=== PATIENT | female | born 1940 | race Caucasian/White ===

== ENCOUNTER 2019-04-18 20:55 | Inpatient (IN) ==
--- NOTE | 2019-04-18 21:01 | Emergency Department Note ---
Disposition Clinical Impression: Delirium due to general medical condition Altered mental status Qualifiers: Altered mental status type: stupor Qualified Code(s): R40.1 - Stupor Leukocytosis Qualifiers: Leukocytosis type: other Qualified Code(s): D72.828 - Other elevated white blood cell count Pneumonia Qualifiers: Pneumonia type: due to unspecified organism Laterality: bilateral Lung location: unspecified part of lung Qualified Code(s): J18.9 - Pneumonia, uns pecified organism Sepsis Qualifiers: Sepsis type: sepsis due to unspecified organism Qualified Code(s): A41.9 - Sepsis, unspecified organism Disposition: Admitted As Inpatient Condition: Critical Referrals: Pablo Rowland MD [Primary Care Provider] - Forms: ED Satisfaction Letter Time of Disposition: 22:00 Altered Mental Status HPI - General Chief Complaint: ED Altered Mental Status Stated Complaint: UNRESPONSIVE/AMS Time Seen by Provider: 04/18/19 20:59 Source: EMS Mode of arrival: EMS Limitations: altered mental status, physical limitation, age Nursing Notes Reviewed: Yes Vital Signs Reviewed: Yes - History of Present Illness HPI Narrative: Patient arrives from assisted with history of decreased mental status, hypotension and hypoxia. She had a chest x-ray performed a laboratory ordered with plan to continue with DNR CC measures. Family/POA advised the assisted they decided her transfer to the emergency department as she had had an episode in the past that responded to fluids due to acute renal failure. She has been brought in by EMS noting a blood pressure in the 80s, tachycardia, hypoxia and poor responsive state. She is not able to follow commands or answer questions and of any type. No further history is obtainable from the patient at this time. MD complaint: altered mental status, confusion, decreased responsiveness, weakness Onset (ago): day(s) Timing confirmed by: family member, caregiver Pain Severity: none Consistency of Symptoms: getting worse - Related Data Home Medications Medication Instructions Recorded Confirmed Allopurinol [Zyloprim 100 MG] 200 mg PO DAILY 04/18/19 04/18/19 Baclofen 5 mg PO TID 04/18/19 04/18/19 Clopidogrel [Plavix] 75 mg PO DAILY 04/18/19 04/18/19 Divalproex (12 HR) [Depakote (12 500 mg PO DAILY 04/18/19 04/18/19 HR)] Divalproex Sodium [Depakote] 125 mg PO DAILY 04/18/19 04/18/19 Docusate [Colace] 100 mg PO BID 04/18/19 04/18/19 Nitrofurantoin Monohyd/M-Cryst 100 mg PO DAILY 04/18/19 04/18/19 [Macrobid 100 mg Capsule] Nortriptyline [Pamelor] 10 mg PO HS 04/18/19 04/18/19 Oxycodone HCl/Acetaminophen 1 each PO DAILY 04/18/19 04/18/19 [Percocet 5-325 mg Tablet] Quetiapine Fumarate [SEROquel] 100 mg PO HS 04/18/19 04/18/19 Sertraline [Zoloft] 25 mg PO DAILY 04/18/19 04/18/19 Allergies Allergy/AdvReac Type Severity Reaction Status Date / Time adhesive tape AdvReac See Verified 11/26/15 03:05 Comments codeine AdvReac See Verified 11/26/15 03:05 Comments iodine AdvReac See Verified 11/26/15 03:05 Comments shellfish derived AdvReac See Verified 11/26/15 03:05 Comments Sulfa (Sulfonamide AdvReac See Verified 11/26/15 03:05 Antibiotics) Comments Limitations: ROS unobtainable due to patients medical condition Past Medical History - Past Medical History Source: obtained from family, nursing notes reviewed Medical history: Reports: CHF, COPD, CVA, dementia, diabetes, GERD, hyperlipidemia, hypertension, renal disease, other Psychiatric history: Reports: anxiety, depression, other - Social History Smoking Status: Never smoker Smokeless Tobacco Status: No Alcohol use: Reports: none Drug use: Reports: none Physical Exam - General Limitations: altered mental status, physical limitation General appearance: lethargic - Head Head exam: atraumatic, normocephalic, other (The patient's care is densely matted in the occiput.) - Eye Eye exam: Absent: scleral icterus, conjunctival injection - ENT ENT exam: mucous membranes dry - Neck Neck exam: Present: trachea midline - Chest Chest inspection: Present: normal inspection, symmetric chest wall rise, other (Shallow respiration) - Respiratory Respiratory exam: Present: other (Shallow respiration). Absent: respiratory distress, wheezes, prolonged expiratory phase - Cardiovascular Cardiovascular exam: Present: regular rate, tachycardia - Abdominal Exam Abdominal exam: Present: soft, Non-Tender. Absent: tenderness, distention, guarding, rebound, rigidity - Extremities Exam Extremities exam: Present: other (Delayed capillary refill, no breakdown, pale) - Expanded Lower Extremity Exam Gait: not tested/not observed - Back Exam Back exam: Present: other (Decubiti in the sacral and buttock region) - Neurological Exam Neurological exam: Present: other (Patient unresponsive and only moaning when turned to examine the back.). Absent: alert, oriented X3 - Psychiatric Psychiatric exam: Present: other (Unresponsive) - Skin Skin exam: Present: warm, dry, pallor, other (Sacral and buttock decubiti, shallow). Absent: diaphoresis Course Course Narrative: 2102: Care has been discussed with Dr. Rowland. He does not wish to be aggressive with extended laboratory her testing. He did agree with obtaining the laboratories that he had ordered at the assisted for CBC, basic metabolic panel and a procalcitonin. As there is no report on the chest x-ray this too will be repeated. We will give fluid bolus and continued fluid hydration as well as a dose of Rocephin to cover for possible infection. I discussed urine, lactic acid, ABG or blood cultures and he is comfortable going with the above treatment. He will continue with comfort care measures and support her for infection and fluids. 2114: Family has arrived to bedside care is discussed as well as the rec ommendations by Dr. Rowland. I did advise them that her saturation on a nonrebreather mask is about 80% and her respirations paradoxically slow. This will likely lead to progressive CO2 retention, sedation and likely . She is not a candidate for BiPAP and also not to be intubated. They are in agreement with continuing comfort measures. It was noted at the same time that she has bedsores on the buttocks and sacral region. The back of her hair is firm and thickly matted. Protective bandages have been placed over the areas of skin breakdown. 2209: With return of x-ray and labwork, orders have been coordinated for Dr. Rowland to the floor. Vital Signs Temperature 98.0 F 04/18/19 20:59 Pulse Rate 119 04/18/19 20:59 Respiratory Rate 18 04/18/19 20:59 Blood Pressure 93/47 04/18/19 20:59 O2 Sat by Pulse Oximetry 81 04/18/19 20:59 Temperature 98.0 F 04/18/19 20:59 Pulse Rate 119 04/18/19 20:59 Respiratory Rate 18 04/18/19 20:59 Blood Pressure 93/47 04/18/19 20:59 O2 Sat by Pulse Oximetry 88 04/18/19 21:46 Oxygen Delivery Oxygen Delivery Nasal Cannula Altered Mental Status - Differential Diagnosis Likely: altered mental status, delirium, dementia, hyponatremia, sepsis - Medical Records Medical records reviewed: Yes I reviewed the patient's medical records. - Lab Data Lab results reviewed: Yes I reviewed the patient's lab results. Result diagrams: 04/18/19 21:41 04/18/19 21:41 Lab Results 04/18/19 04/18/19 Range/Units 21:41 21:41 WBC 35.1 H* (4.3-11.1) K/mcL RBC 3.67 L (3.82-4.97) M/mcL Hgb 11.6 (11.5-15.4) g/dL Hct 36.5 (35.3-44.9) % MCV 99.5 (83.0-100.0) fL MCH 31.6 (28.0-33.3) pg MCHC 31.8 (31.6-35.5) g/dL RDW 15.6 H (11.5-14.5) % Plt Count 383 (140-400) K/mcL MPV 9.8 (9.4-12.4) fL Nucleated RBCs/100 WBC 0.5 H (0) /100 WBC Sodium 147 H (136-145) mEq/L Potassium 3.2 L (3.5-5.1) mEq/L Chloride 106 (98-107) mEq/L Carbon Dioxide 31 H (23-29) mEq/L BUN 46 H (8-23) mg/dL Creatinine 0.75 (0.60-1.20) mg/dL Est GFR ( Amer) > 60 (> 60) Est GFR (Non-Af Amer) > 60 (> 60) BUN/Creatinine Ratio 61 H (6-26) Glucose 80 (70-105) mg/dL Calculated Osmolality 315 H (280-300) Calcium 8.3 L (8.6-10.3) mg/dL - Radiology Data Radiology results reviewed: Yes I reviewed the patient's radiology results. Single view chest x-rays performed. This shows elevation of right hemidiaphragm and a patchy infiltrate base of the right lung. Etiologies include aspiration or pneumonia. Patient has cardiomegaly. I do not see effusion, pneumothorax or heart failure. This is on my interpretation. Impressions Chest X-Ray 04/18/19 21:02 IMPRESSION: Bilateral airspace disease, greater on the right, pneumonia or asymmetric edema. D/ / Kassidy Chavarria Cha, MD / Kassidy Chavarria Cha, MD Interpreting Provider: Kassidy Chavarria Cha, MD Checklist - LKW: 3-4.5 hrs Add. Warnings/Precautions Patient/family understanding: The patient/family members have been counseled and understood the risk, benefit, and alternatives of treatment. Critical Care Time Critical Care Time: Yes Total Critical Care Time: 40 Attestation: As this patient did present with signs and symptoms of potential life- threatening illness requiring my urgent intervention, total critical care time in this patient's care has been 40 minutes, not withstanding separately reporta ble procedures.
[2019-04-18] MEDS ORDERED: 0.9 % Sodium Chloride 1,000 ML IVC ONE ×3 (21:02→23:11)
[2019-04-18] MEDS ORDERED: cefTRIAXone 1,000 MG in 0.9 % Sodium Chloride Mini Bag 100 ML IVPB ONE (21:06)
[2019-04-18] MEDS ORDERED: 0.9 % Sodium Chloride 1,000 ML IVC SCH (21:15)
[2019-04-18 21:46] LABS: Hematocrit 36.5 % (35.3-44.9); Hemoglobin 11.6 g/dL (11.5-15.4); Lymphocytes # 0.7 K/mcL (0.6-4.6); Mean Corpuscular HGB Conc 31.8 g/dL (31.6-35.5); Mean Corpuscular Hemoglobin 31.6 pg (28.0-33.3); Mean Corpuscular Volume 99.5 fL (83.0-100.0); Mean Platelet Volume 9.8 fL (9.4-12.4); Nucleated Red Blood Cells 0.5 /100 WBC (0); Platelet Count 383 K/mcL (140-400); Red Blood Count 3.67 M/mcL (3.82-4.97); Red Cell Distribution Width 15.6 % (11.5-14.5)
[2019-04-18 21:53] LABS: White Blood Count 35.1 K/mcL (4.3-11.1)
[2019-04-18 22:04] LABS: BUN/Creatinine Ratio 61 (6-26); Blood Urea Nitrogen 46 mg/dL (8-23); Calcium 8.3 mg/dL (8.6-10.3); Carbon Dioxide 31 mEq/L (23-29); Chloride 106 mEq/L (98-107); Glucose 80 mg/dL (70-105); Osmolality,Calculated 315 (280-300); Potassium 3.2 mEq/L (3.5-5.1); Sodium 147 mEq/L (136-145); eGFR For African Americans > 60 (> 60); eGFR For Non-African Americans > 60 (> 60)
[2019-04-18] MEDS ORDERED: Azithromycin 500 MG in D5% in Water 250 ML IVPB ONE (22:16)
[2019-04-18 22:28] LABS: Monocytes # 1.4 K/mcL (0.0-1.3); Neutrophils # 31.6 K/mcL (1.6-8.9); Platelet Estimate Normal (Normal); Toxic Granulation Present (Not Present)
[2019-04-18] MEDS ORDERED: Ondansetron 4 MG/2 ML VIAL IVP PRN (23:11)
[2019-04-18] MEDS ORDERED: Naloxone 0.4 MG/ML INJ IVP PRN (23:11)
[2019-04-18] MEDS ORDERED: Albuterol 2.5 MG/3 ML NEBULIZER IH PRN (23:11)
[2019-04-19] MEDS: 0.9 % Sodium Chloride 1,000 ML IVC SCH ×2 (03:51→14:46)
[2019-04-19] MEDS: Ipratropium/Albuterol Neb 3 ML IH SCH ×3 (03:59→08:16)
[2019-04-19] MEDS ORDERED: Acetaminophen 650 MG RECTAL SUPP RC PRN (05:11)
[2019-04-19] MEDS: *HR* LORazepam 2 MG/ML VIAL IVP PRN ×2 (06:11→14:25)
[2019-04-19] MEDS ORDERED: cefTRIAXone 1,000 MG in Water for inj. (sterile) 10 ML IVPB SCH (09:00)
[2019-04-19] MEDS: cefTRIAXone 1,000 MG in Water for inj. (sterile) 10 ML IVP SCH (09:37)
--- NOTE | 2019-04-19 10:27 | Internal Med History&Physical ---
Date of Encounter: 04/19/19 Time of Encounter: 10:10 Assessment and Plan (1) Sepsis Current visit: Yes Status: Acute Likely secondary to pneumonia. She was started on empiric IV Rocephin and Zithromax in emergency room. These will be continued and lactobacillus will be added when oral intake ability improves. Qualifiers: Sepsis type: sepsis due to unspecified organism Qualified Code(s): A41.9 - Sepsis, unspecified organism (2) Pneumonia Current visit: Yes Status: Acute As above Qualifiers: Pneumonia type: due to unspecified organism Laterality: bilateral Lung location: unspecified part of lung Qualified Code(s): J18.9 - Pneumonia, unspecified organism (3) Fracture of distal end of right femur Current visit: Yes Status: Acute Continue knee immobilizer and follow with orthopedist. Qualifiers: Encounter type: subsequent encounter Fracture type: closed Fracture m orphology: unspecified fracture morphology Fracture healing: with routine healing Qualified Code(s): S72.401D - Unspecified fracture of lower end of right femur, subsequent encounter for closed fracture with routine healing (4) Azotemia Current visit: Yes Status: Acute Likely due to dehydration. Continue IV fluids and monitor labs. (5) Hypokalemia Current visit: Yes Status: Acute Supplemental potassium will be given. (6) Gout Current visit: No Status: Chronic Continue allopurinol when able to tolerate oral intake. Qualifiers: Gout site: unspecified site Gout etiology: unspecified cause Chronicity: chronic Presence of tophus: without tophus Qualified Code(s): M1A.9XX0 - Chronic gout, unspecified, without tophus (tophi) (7) Dementia Current visit: Yes Status: Chronic Qualifiers: Dementia type: unspecified type Dementia behavioral disturbance: without behavioral disturbance Qualified Code(s): F03.90 - Unspecified dementia without behavioral disturbance Internal Medicine - H&P: HPI Chief complaint: Altered mental status, hypotension, and hypoxia. Admitted From: Emergency Dept Plans for Post Hospital Care: Transfer [facility] Living [facility] History of present illness: Ms. Livingston is a 79 year old female who was sent to ER after longterm staff reported her to have decreased mental status, hypotension and hypoxia. Labs and x-rays were ordered at the SNF. Family/POA then decided they wished her to be sent to emergency room for more aggressive intervention. She was found to have significant leukocytosis with bandemia, hypokalemia, and likely dehydration. She was admitted to Medr floor for ongoing care needs. She has advanced dementia and cannot give any reliable history. Past Med Surg Social Fam HX - Past Medical History Medical history: asthma, CHF, COPD, CVA, dementia, diabetes, GERD, hyperlipidemia, hypertension, renal disease, other Additional medical history: CHRONIC PAIN, ALZHEIMERS, TYPE 2 DM, SLEEP APNEA, GENERALIZED ANXIETY DISRDER , former smoker 2-pack/day for 30-years Psychiatric history: anxiety, depression, other - Past Surgical History Surgical History: cholecystectomy, hysterectomy, other Additional surgical history: bilateral nipples removed from breast - Social History Smoking Status: Former smoker Smokeless Tobacco Status: No Alcohol use: none Drug use: none Internal Medicine - H&P: Meds Allopurinol [Zyloprim 100 MG] 200 mg PO DAILY 04/18/19 [History] Baclofen 5 mg PO TID 04/18/19 [History] Clopidogrel [Plavix] 75 mg PO DAILY 04/18/19 [History] Divalproex (12 HR) [Depakote (12 HR)] 500 mg PO DAILY 04/18/19 [History] Divalproex Sodium [Depakote] 125 mg PO DAILY 04/18/19 [History] Docusate [Colace] 100 mg PO BID 04/18/19 [History] Nitrofurantoin Monohyd/M-Cryst [Macrobid 100 mg Capsule] 100 mg PO DAILY 04/18/19 [History] Nortriptyline [Pamelor] 10 mg PO HS 04/18/19 [History] Oxycodone HCl/Acetaminophen [Percocet 5-325 mg Tablet] 1 each PO DAILY 04/18/19 [History] Quetiapine Fumarate [SEROquel] 100 mg PO HS 04/18/19 [History] Sertraline [Zoloft] 25 mg PO DAILY 04/18/19 [History] Allergy/AdvReac Type Severity Reaction Status Date / Time adhesive tape AdvReac See Verified 11/26/15 03:05 Comments codeine AdvReac See Verified 11/26/15 03:05 Comments iodine AdvReac See Verified 11/26/15 03:05 Comments shellfish derived AdvReac See Verified 01/26/16 03:05 Comments Sulfa (Sulfonamide AdvReac See Verified 11/26/15 03:05 Antibiotics) Comments All Systems PM: A 10-system review of systems was performed and is negative for pertinent findings except as documented above in the HPI. Review of systems: Review of systems is unobtainable from the patient. Available records were revi ewed and show the following: Gen.: Her weight has decreased from 360 pounds April 2012 to approximately 205 pounds at present. Weight has been stable for several months at the [facility]. Cardiovascular: She has history of hypertension but no known heart failure GA DVT or pulmonary embolus. Respiratory: She smoked from approximately age [age] up to one and a half packs per day. She has been diagnosed with COPD and wears oxygen. She had initial evaluation for DIANA several years ago but never completed the studies and does not use CPAP/BiPAP at the [facility]. GI: She has had cholecystectomy. She has GERD. There is no known disorders of liver or exocrine pancreas. : She had kidney stones in the without recurrence. There is no known chronic kidney or bladder disorders. Neurologic: She has advanced dementia. There is no known large distribution strokes or seizures. Endocrine: She was diagnosed with DM 2 approximately 1984. She has hyperlipidemia but no known thyroid disease. Hematology/oncology: There is no known blood disorders cancers or anemia Psychiatric: She has anxiety and depression. [place] skeletal: She was found to have a distal right femur fracture of uncertain age or etiology approximately 10 days ago. She has been seen by the [facility] orthopedist and a nonsurgical approach is being pursued. She has diagnoses of gout and DJD. - Constitutional Vitals: Temp Pulse Resp BP Pulse Ox 98.9 F 117 20 100/66 90 04/19/19 08:20 04/19/19 08:20 04/19/19 08:20 04/19/19 08:20 04/19/19 08:20 Exam: Gen.: She is a well-developed overweight female lying in bed who does not respond meaningfully to voice or light touch HEENT: Head is atraumatic and normocephalic. Eyes: She has a slightly disco njugate gaze. There is no scleral icterus. Mouth: Mucosa is dry. She is mouth breathing and wearing oxygen by oxymask. Neck: Supple and nontender. There is no thyromegaly or adenopathy noted. Heart: Heart tones are distant and difficult to hear. Lungs: No wheezes or crackles or rhonchi are heard. Abdomen: She has a large abdomen. It is nontender to palpation. No masses or guarding are noted. Extremities: She has mild DJD changes of her hands. She has a right knee immobilizer brace in place. Heel protector boots are in place bilaterally. There is no cyanosis edema or clubbing noted. Neurologic: Mental status: She does not respond to voice or light touch. Cranial nerves: she does not spontaneously move facial muscles or follow commands. Motor: She has equal arm tone on passive range of motion. She moves very little spontaneously. No further neurologic testing is attempted. Skin: Warm and dry. Internal Med - H&P Results - Labs CBC & Chem 7: 04/18/19 21:41 04/18/19 21:41 Labs: Short CBC 04/18/19 Range/Units 21:41 WBC 35.1 H* (4.3-11.1) K/mcL Hgb 11.6 (11.5-15.4) g/dL Hct 36.5 (35.3-44.9) % Plt Count 383 (140-400) K/mcL Neutrophils # 31.6 H (1.6-8.9) K/mcL BMP 04/18/19 21:41 Sodium 147 H Potassium 3.2 L Chloride 106 Carbon Dioxide 31 H BUN 46 H Creatinine 0.75 Glucose 80 Calcium 8.3 L - Impressions ITS Impressions Chest X-Ray 04/18/19 21:02 IMPRESSION: Bilateral airspace disease, greater on the right, pneumonia or asymmetric edema. D/ / Kassidy Chavarria Cha, MD / Kassidy Chavarria Cha, MD Interpreting Provider: Kassidy Chavarria Cha, MD
[2019-04-19] MEDS: 0.45 % Sodium Chloride w/KCl 20 MEQ/1,000 ML MLS IVC SCH (12:36)
[2019-04-19] MEDS: Acetaminophen 650 MG RECTAL SUPP RC PRN (17:46)
[2019-04-19] MEDS ORDERED: Ketorolac 30 MG/ML VIAL IVP ONE (21:04)
[2019-04-19] MEDS ORDERED: levoFLOXacin 750 MG/150 ML 750 MG/150 ML BAG IVPB ONE (21:05)
[2019-04-19] MEDS: Azithromycin 500 MG in D5% in Water 250 ML IVPB SCH (21:17)
[2019-04-20] MEDS: Acetaminophen 650 MG RECTAL SUPP RC PRN (00:28)
[2019-04-20] MEDS: 0.45 % Sodium Chloride w/KCl 20 MEQ/1,000 ML MLS IVC SCH ×4 (00:31→19:00)
[2019-04-20] MEDS: *HR* Enoxaparin 40 MG/0.4 ML SYRINGE SQ SCH (05:53)
[2019-04-20 07:52] LABS: Hematocrit 33.6 % (35.3-44.9); Hemoglobin 10.6 g/dL (11.5-15.4); Mean Corpuscular HGB Conc 31.5 g/dL (31.6-35.5); Mean Corpuscular Hemoglobin 31.5 pg (28.0-33.3); Mean Platelet Volume 10.3 fL (9.4-12.4); Nucleated Red Blood Cells 0.4 /100 WBC (0); Platelet Count 322 K/mcL (140-400); Red Blood Count 3.36 M/mcL (3.82-4.97); Red Cell Distribution Width 16.2 % (11.5-14.5)
[2019-04-20 08:15] LABS: White Blood Count 30.7 K/mcL (4.3-11.1)
[2019-04-20 08:37] LABS: Thyroid Stimulating Hormone 0.768 mcIU/mL (0.340-5.600)
[2019-04-20 08:38] LABS: Alanine Aminotransferase 6 Units/L (7-52); Albumin 1.9 g/dL (3.5-5.7); Albumin/Globulin Ratio 0.5 (1.1-2.2); Alkaline Phosphatase 131 Units/L (34-104); Aspartate Amino Transferase 21 Units/L (13-39); BUN/Creatinine Ratio 77 (6-26); Bilirubin,Total 0.6 mg/dL (0.3-1.0); Blood Urea Nitrogen 41 mg/dL (8-23); Calcium 8.1 mg/dL (8.6-10.3); Carbon Dioxide 34 mEq/L (23-29); Chloride 109 mEq/L (98-107); Globulin 3.6 g/dL (2.4-3.5); Glucose 96 mg/dL (70-105); Magnesium 1.8 mg/dL (1.6-2.6); Osmolality,Calculated 318 (280-300); Potassium 3.5 mEq/L (3.5-5.1); Sodium 149 mEq/L (136-145); Total Protein 5.5 g/dL (6.4-8.9); eGFR For African Americans > 60 (> 60); eGFR For Non-African Americans > 60 (> 60)
[2019-04-20 09:06] LABS: Monocytes # 0.6 K/mcL (0.0-1.3)
[2019-04-20 09:07] LABS: Neutrophils # 26.4 K/mcL (1.6-8.9)
[2019-04-20 09:08] LABS: Lymphocytes # 3.1 K/mcL (0.6-4.6)
[2019-04-20 09:09] LABS: Platelet Estimate Normal (Normal); Toxic Granulation Present (Not Present)
--- NOTE | 2019-04-20 09:14 | Internal Med Progress Note ---
Date of Encounter: 04/20/19 Time of Encounter: 09:05 - Assessment and plan (1) Sepsis Current Visit: Yes Status: Acute Assessment and plan: April 20. Pro calcitonin elevated at 1.14. WBC improved at 30.7. Continue Rocephin and Zithromax. Qualifiers: Sepsis type: sepsis due to unspecified organism Qualified Code(s): A41.9 - Sepsis, unspecified organism (2) Pneumonia Current Visit: Yes Status: Acute Assessment and plan: April 20. As above Qualifiers: Pneumonia type: due to unspecified organism Laterality: bilateral Lung location: unspecified part of lung Qualified Code(s): J18.9 - Pneumonia, unspecified organism (3) Fracture of distal end of right femur Current Visit: Yes Status: Acute Assessment and plan: April 20. Continue knee immobilizer and follow with orthopedist Qualifiers: Encounter type: subsequent encounter Fracture type: closed Fracture morphology: unspecified fracture morphology Fracture healing: with routine healing Qualified Code(s): S72.401D - Unspecified fracture of lower end of right femur, subsequent encounter for closed fracture with routine healing (4) Azotemia Current Visit: Yes Status: Acute Assessment and plan: April 20. BUN and creatinine decreased to 41 and 0.53 respectively. Continue IV fluids. (5) Hypokalemia Current Visit: Yes Status: Acute Assessment and plan: April 20. Potassium normal at 3.5. Continue IV fluids with supplemental potassium. (6) Gout Current Visit: No Status: Chronic Assessment and plan: April 20. Continue allopurinol when able to tolerate oral intake. Qualifiers: Gout site: unspecified site Gout etiology: unspecified cause Chronicity: chronic Presence of tophus: without tophus Qualified Code(s): M1A.9XX0 - Chronic gout, unspecified, without tophus (tophi) (7) Dementia Current Visit: Yes Status: Chronic Assessment and plan: April 20. Stable Qualifiers: Dementia type: unspecified type Dementia behavioral disturbance: without behavioral disturbance Qualified Code(s): F03.90 - Unspecified dementia without behavioral disturbance (8) Anemia Current Visit: Yes Status: Acute Assessment and plan: April 20. Hemoglobin decreased to 10.6 today. Anemia testing will be ordered Qualifiers: Anemia type: unspecified type Qualified Code(s): D64.9 - Anemia, unspecified - Subjective Interval history: April 20. She spiked a fever last night. She was given IV Toradol and Levaquin with resolution of fever. - Constitutional Vitals: Temp Pulse Resp BP Pulse Ox 97.7 F 89 14 103/64 97 04/20/19 06:31 04/20/19 06:31 04/20/19 06:31 04/20/19 06:31 04/20/19 06:31 Exam: She is resting in bed and appears slightly less somnolent than yesterday. She is moving her arms and head slightly more than yesterday. She is still wearing oxygen by oxymask. Lungs show no wheezes or rhonchi anteriorly. Extremities show no edema. I reviewed her medications and lab results. Internal Medicine: Result - Labs CBC & Chem 7: 04/20/19 07:19 04/20/19 07:19 Labs: Short CBC 04/20/19 Range/Units 07:19 WBC 30.7 H* (4.3-11.1) K/mcL Hgb 10.6 L (11.5-15.4) g/dL Hct 33.6 L (35.3-44.9) % Plt Count 322 (140-400) K/mcL Neutrophils # 26.4 H (1.6-8.9) K/mcL BMP 04/20/19 07:19 Sodium 149 H Potassium 3.5 Chloride 109 H Carbon Dioxide 34 H BUN 41 H Creatinine 0.53 L Glucose 96 Calcium 8.1 L Liver Function 04/20/19 Range/Units 07:19 Total Bilirubin 0.6 (0.3-1.0) mg/dL AST 21 (13-39) Units/L ALT 6 L (7-52) Units/L Alkaline Phosphatase 131 H (34-104) Units/L Albumin 1.9 L (3.5-5.7) g/dL Consult Discharge Plan - Plan Referrals: Pablo Rowland MD [Primary Care Provider] - 1 week
[2019-04-20] MEDS: cefTRIAXone 1,000 MG in Water for inj. (sterile) 10 ML IVP SCH (09:35)
[2019-04-20 11:18] LABS: Bilirubin,Urine Small (Negative); Blood,Urine Large (Negative); Clarity,Urine Clear (Clear); Color,Urine Dark Yellow (Yellow); Glucose,Urine (UA) Normal (Normal); Ketones,Urine Negative (Negative); Leukocyte Esterase,Urine Negative (Negative); Nitrite,Urine Negative (Negative); Protein,Urine 30 mg/dL (Neg-Trace); Specific Gravity,Urine 1.015 (1.010-1.025)
[2019-04-20 12:15] LABS: Mucus,Urine Few (Few); RBC,Urine 50-100 per hpf (0-3); Squamous Epithelial Cell,Urine Few per lpf (None-Few)
[2019-04-20] MEDS: Morphine Sulfate Oral CONC 10 MG/0.5 ML ORAL.SYG SL PRN ×3 (12:52→20:01)
[2019-04-20] MEDS ORDERED: *HR* FentaNYL PATCH 12 MCG PATCH TD SCH (14:30)
[2019-04-20] MEDS: *HR* LORazepam 2 MG/ML VIAL IVP PRN (20:01)
[2019-04-20] MEDS: Azithromycin 500 MG in D5% in Water 250 ML IVPB SCH (20:02)
[2019-04-21] MEDS: Morphine Sulfate Oral CONC 10 MG/0.5 ML ORAL.SYG SL PRN ×5 (02:42→22:10)
[2019-04-21] MEDS: 0.45 % Sodium Chloride w/KCl 20 MEQ/1,000 ML MLS IVC SCH ×2 (04:35→15:13)
[2019-04-21] MEDS: *HR* Enoxaparin 40 MG/0.4 ML SYRINGE SQ SCH (04:35)
[2019-04-21] MEDS: *HR* LORazepam 2 MG/ML VIAL IVP PRN (04:36)
[2019-04-21 06:34] LABS: Hematocrit 35.6 % (35.3-44.9); Hemoglobin 11.3 g/dL (11.5-15.4); Mean Corpuscular HGB Conc 31.7 g/dL (31.6-35.5); Mean Corpuscular Hemoglobin 31.6 pg (28.0-33.3); Mean Corpuscular Volume 99.4 fL (83.0-100.0); Mean Platelet Volume 10.5 fL (9.4-12.4); Nucleated Red Blood Cells 0.5 /100 WBC (0); Platelet Count 299 K/mcL (140-400); Red Blood Count 3.58 M/mcL (3.82-4.97); Red Cell Distribution Width 16.2 % (11.5-14.5)
[2019-04-21 06:55] LABS: BUN/Creatinine Ratio 79 (6-26); Blood Urea Nitrogen 27 mg/dL (8-23); Calcium 8.6 mg/dL (8.6-10.3); Carbon Dioxide 32 mEq/L (23-29); Chloride 110 mEq/L (98-107); Glucose 84 mg/dL (70-105); Osmolality,Calculated 306 (280-300); Potassium 3.7 mEq/L (3.5-5.1); Sodium 146 mEq/L (136-145); eGFR For African Americans > 60 (> 60); eGFR For Non-African Americans > 60 (> 60)
[2019-04-21 07:21] LABS: White Blood Count 39.9 K/mcL (4.3-11.1)
[2019-04-21] MEDS ORDERED: levoFLOXacin 750 MG/150 ML 750 MG/150 ML BAG IVPB ONE (07:26)
[2019-04-21] MEDS: cefTRIAXone 1,000 MG in Water for inj. (sterile) 10 ML IVP SCH (07:57)
[2019-04-21 08:56] LABS: Anisocytosis 1+ (Not Present); Lymphocytes # 0.8 K/mcL (0.6-4.6); Monocytes # 2.4 K/mcL (0.0-1.3); Neutrophils # 35.1 K/mcL (1.6-8.9)
[2019-04-21 08:57] LABS: Hypochromasia Present (Not Present); Platelet Clumps Few (Not Present); Platelet Estimate Normal (Normal); Polychromasia 1+ (Not Present); Reactive Lymphocytes Present (Not Present); Toxic Granulation Present (Not Present)
[2019-04-21 09:03] LABS: Transferrin 96 mg/dL (203-362)
[2019-04-21 09:20] LABS: Ferritin 467 ng/mL (10-120)
[2019-04-21 09:24] LABS: Folate 4.6 ng/mL (3.0-16.0)
[2019-04-21 09:38] LABS: Vitamin B12 > 1500 pg/mL (250-1100)
[2019-04-21 09:39] LABS: % Iron Saturation 31 % (15-50); Iron 41 mcg/dL (50-170)
--- NOTE | 2019-04-21 11:01 | Internal Med Progress Note ---
Date of Encounter: 04/21/19 Time of Encounter: 10:50 - Assessment and plan (1) Sepsis Current Visit: Yes Status: Acute Assessment and plan: April 20. Pro calcitonin elevated at 1.14. WBC improved at 30.7. Continue Rocephin and Zithromax. April 21. WBC has risen to 39.9 with persistent left shift. IV Levaquin was given today in addition to Rocephin and Zithromax. Chest x-ray will be ordered to follow-up on pneumonia. Qualifiers: Sepsis type: sepsis due to unspecified organism Qualified Code(s): A41.9 - Sepsis, unspecified organism (2) Pneumonia Current Visit: Yes Status: Acute Assessment and plan: April 20. As above Qualifiers: Pneumonia type: due to unspecified organism Laterality: bilateral Lung location: unspecified part of lung Qualified Code(s): J18.9 - Pneumonia, unspecified organism (3) Fracture of distal end of right femur Current Visit: Yes Status: Acute Assessment and plan: April 20. Continue knee immobilizer and follow with orthopedist Qualifiers: Encounter type: subsequent encounter Fracture type: closed Fracture morphology: unspecified fracture morphology Fracture healing: with routine healing Qualified Code(s): S72.401D - Unspecified fracture of lower end of right femur, subsequent encounter for closed fracture with routine healing (4) Azotemia Current Visit: Yes Status: Acute Assessment and plan: April 20. BUN and creatinine decreased to 41 and 0.53 respectively. Continue IV fluids. April 21. BUN and creatinine improved to 27 and 0.34 respectively. Continue IV fluids. (5) Hypokalemia Current Visit: Yes Status: Acute Assessment and plan: April 20. Potassium normal at 3.5. Continue IV fluids with supplemental potassium. April 21. Potassium normal at 3.7. Continue present Rx. (6) Gout Current Visit: No Status: Chronic Assessment and plan: April 20. Continue allopurinol when able to tolerate oral intake. Qualifiers: Gout site: unspecified site Gout etiology: unspecified cause Chronicity: chronic Presence of tophus: without tophus Qualified Code(s): M1A.9XX0 - Chronic gout, unspecified, without tophus (tophi) (7) Dementia Current Visit: Yes Status: Chronic Assessment and plan: April 20. Stable Qualifiers: Dementia type: unspecified type Dementia behavioral disturbance: without behavioral disturbance Qualified Code(s): F03.90 - Unspecified dementia without behavioral disturbance (8) Anemia Current Visit: Yes Status: Acute Assessment and plan: April 20. Hemoglobin decreased to 10.6 today. Anemia testing will be ordered April 21. Hemoglobin improved to 11.3. Anemia testing showed iron 41, transferrin saturation 31%, transferrin 96, ferritin 467, B12 > 1500, and folate 4.6. Continue to monitor. Qualifiers: Anemia type: unspecified type Qualified Code(s): D64.9 - Anemia, unspecified - Subjective Interval history: April 20. She spiked a fever last night. She was given IV Toradol and Levaquin with resolution of fever. April 21. No new problems have arisen. - Constitutional Vitals: Temp Pulse Resp BP Pulse Ox 98.2 F 97 17 122/73 94 04/21/19 07:19 04/21/19 07:19 04/21/19 07:19 04/21/19 07:04/21/19 07:19 Exam: She is resting in bed and appears in no acute distress. She does not open her eyes to voice or light touch. She is moving her arms spontaneously but non- purposefully. Lungs are clear anteriorly. Heart is regular without murmurs gallops or ectopics. Extremities show no pitting edema. I reviewed her medications and lab results. Internal Medicine: Result - Labs CBC & Chem 7: 04/21/19 06:19 04/21/19 06:19 Labs: Short CBC 04/21/19 Range/Units 06:19 WBC 39.9 H* (4.3-11.1) K/mcL Hgb 11.3 L (11.5-15.4) g/dL Hct 35.6 (35.3-44.9) % Plt Count 299 (140-400) K/mcL Neutrophils # 35.1 H (1.6-8.9) K/mcL BMP 04/21/19 06:19 Sodium 146 H Potassium 3.7 Chloride 110 H Carbon Dioxide 32 H BUN 27 H Creatinine 0.34 L Glucose 84 Calcium 8.6 Urine 04/20/19 Range/Units 10:59 Urine Color Dark Yellow (Yellow) Urine Clarity Clear (Clear) Urine pH 6.0 (5.0-8.0) pH Units Ur Specific [place] 1.015 (1.010-1.025) Urine Protein 30 H (Neg-Trace) mg/dL Urine Glucose (UA) Normal (Normal) mg/dL Consult Discharge Plan - Plan Referrals: Pablo Rowland MD [Primary Care Provider] - 1 week
[2019-04-21] MEDS ORDERED: 0.45 % Sodium Chloride w/KCl 20 MEQ/1,000 ML MLS IVC SCH (14:32)
[2019-04-21] MEDS: Azithromycin 500 MG in D5% in Water 250 ML IVPB SCH (21:39)
[2019-04-22] MEDS: Morphine Sulfate Oral CONC 10 MG/0.5 ML ORAL.SYG SL PRN ×7 (00:13→16:23)
[2019-04-22] MEDS ORDERED: *HR* LORazepam Oral Conc 2 MG/ML SL PRN (05:28)
[2019-04-22] MEDS: *HR* Enoxaparin 40 MG/0.4 ML SYRINGE SQ SCH (05:48)
[2019-04-22 06:44] VITALS: BP 116/71
--- NOTE | 2019-04-22 10:14 | Discharge Summary ---
Orders not resulted at time of discharge: Pending orders 04/20/19 07:19 Zinc AM 0400 Date of Encounter: 04/22/19 Time of Encounter: 10:05 - Discharge Diagnosis (1) Sepsis Priority: Primary Status: Acute Qualifiers: Sepsis type: sepsis due to unspecified organism Qualified Code(s): A41.9 - Sepsis, unspecified organism (2) Pneumonia Priority: Secondary Status: Acute Qualifiers: Pneumonia type: due to unspecified organism Laterality: bilateral Lung location: unspecified part of lung Qualified Code(s): J18.9 - Pneumonia, unspecified organism (3) Fracture of distal end of right femur Priority: Secondary Status: Acute Qualifiers: Encounter type: subsequent encounter Fracture type: closed Fracture morphology: unspecified fracture morphology Fracture healing: with routine healing Qualified Code(s): S72.401D - Unspecified fracture of lower end of right femur, subsequent encounter for closed fracture with routine healing (4) Azotemia Priority: Secondary Status: Acute (5) Hypokalemia Priority: Secondary Status: Acute (6) Gout Priority: Secondary Status: Chronic Qualifiers: Gout site: unspecified site Gout etiology: unspecified cause Chronicity: chronic Presence of tophus: without tophus Qualified Code(s): M1A.9XX0 - Chronic gout, unspecified, without tophus (tophi) (7) Dementia Priority: Secondary Status: Chronic Qualifiers: Dementia type: unspecified type Dementia behavioral disturbance: without behavioral disturbance Qualified Code(s): F03.90 - Unspecified dementia without behavioral disturbance (8) Anemia Priority: Secondary Status: Acute Qualifiers: Anemia type: unspecified type Qualified Code(s): D64.9 - Anemia, unspecified Hospital course: Ms. Livingston is a 79 year old female who was sent to ER after [facility] staff reported her to have decreased mental status, hypotension and hypoxia. Labs and x-rays were ordered at the SNF. Family/POA then decided they wished her to be sent to emergency room for more aggressive intervention. She was found to have significant leukocytosis with bandemia, hypokalemia, and likely dehydration. She was admitted to [facility] floor for ongoing care needs. Initial orders were written by the emergency room physician. I saw her on April 19 and performed the history and physical. She was started empirically on Rocephin and Zithromax and lactobacillus. She was given 2 doses of IV Levaquin also. She had decrease in WBC to 30.7 on April 20 but rise the following day to 39.9 with left shift present. I had a long discussion with family. They wished to consult with Dr. Chiang for second opinion. He visited with the family the afternoon of April 21 with geriatric social work professor present. After contemplation the family wished her to be changed to hospice care with no further aggressive intervention done. She will be discharged to inpatient hospice service. Anticipate survival is 48-72 hours. - Time Spent with Patient Total time spent providing and/or coordinating discharge services: - Discharge Medications Prescriptions: New LORazepam Oral Conc [Ativan Oral Conc] 2 mg PO Q2H PRN 7 Days #120 mls PRN Reason: Agitation Morphine Oral CONC [Roxanol] 0.5 ml PO Q1H PRN 7 Days #120 ml PRN Reason: Pain Discontinued Allopurinol [Zyloprim 100 MG] 200 mg PO DAILY Divalproex Sodium [Depakote] 125 mg PO DAILY Divalproex (12 HR) [Depakote (12 HR)] 500 mg PO DAILY Nitrofurantoin Monohyd/M-Cryst [Macrobid 100 mg Capsule] 100 mg PO DAILY Quetiapine Fumarate [SEROquel] 100 mg PO HS Clopidogrel [Plavix] 75 mg PO DAILY Nortriptyline [Pamelor] 10 mg PO HS Oxycodone HCl/Acetaminophen [Percocet 5-325 mg Tablet] 1 each PO DAILY Docusate [Colace] 100 mg PO BID Sertraline [Zoloft] 25 mg PO DAILY Baclofen 5 mg PO TID Home Medications: LORazepam Oral Conc [Ativan Oral Conc] 2 mg PO Q2H PRN 7 Days #120 mls 04/22/19 [Rx] Morphine Oral CONC [Roxanol] 0.5 ml PO Q1H PRN 7 Days #120 ml 04/22/19 [Rx] Allergies/Adverse Reactions: Allergy/AdvReac Type Severity Reaction Status Date / Time adhesive tape AdvReac See Verified 11/26/15 03:05 Comments codeine AdvReac See Verified 11/26/15 03:05 Comments iodine AdvReac See Verified 11/26/15 03:05 Comments shellfish derived AdvReac See Verified 11/26/15 03:05 Comments Sulfa (Sulfonamide AdvReac See Verified 11/26/15 03:05 Antibiotics) Comments Date of admission: 04/19/19 12:16 Primary care physician: Pablo Rowland MD Consults: 04/19/19 00:24 Consult to Nutrition [CONS] Routine Comment: Consulting Provider: NUTRITION Reason for Dietary Consult: Diet Education Consult to Hr Analyst [CONS] Routine Reason for SW Consult: address patient's needs for healthcare - Constitutional Vitals: Temp Pulse Resp BP Pulse Ox 101.3 F H 106 13 116/71 93 04/22/19 06:39 04/22/19 06:39 04/22/19 06:39 04/22/19 06:39 04/22/19 06:39 - Patient Status Disposition: Hospice - Medical Facility Condition: Critical - Discharge Instructions
== END 2019-04-22 18:05 | disposition hospice, inpatient (51) | DRG 871 ==
LOC: INPPIK 20:55 → EMEROOPIK 20:55 → INPPIK 22:57
PROVIDERS: ADMIT Internal Medicine; ATTEND Internal Medicine

== ENCOUNTER 2019-04-22 17:23 | Inpatient (IN) ==
[2019-04-22] MEDS ORDERED: Acetaminophen 650 MG RECTAL SUPP RC PRN (17:37)
[2019-04-22] MEDS ORDERED: *HR* LORazepam Oral Conc 2 MG/ML PO PRN (17:37)
[2019-04-22] MEDS ORDERED: Morphine Sulfate Oral CONC 10 MG/0.5 ML ORAL.SYG SL PRN (17:42)
[2019-04-22 19:27] VITALS: BP 54/40
[2019-04-22] MEDS ORDERED: Atropine 1% Opth Drops 100 DROP/5 ML BOTTLE SL PRN (20:45)
--- NOTE | 2019-04-23 09:23 | Discharge Summary ---
Date of Encounter: 04/23/19 Time of Encounter: 09:20 - Discharge Diagnosis (1) Pneumonia Priority: Primary Status: Acute Qualifiers: Laterality: bilateral Qualified Code(s): J18.9 - Pneumonia, unspecified organism (2) Sepsis Priority: Secondary Status: Acute Qualifiers: Qualified Code(s): A41.9 - Sepsis, unspecified organism (3) Fracture of distal end of right femur Priority: Secondary Status: Acute Qualifiers: Encounter type: subsequent encounter Fracture type: closed Fracture morphology: unspecified fracture morphology Fracture healing: with routine healing Qualified Code(s): S72.401D - Unspecified fracture of lower end of right femur, subsequent encounter for closed fracture with routine healing (4) Azotemia Priority: Secondary Status: Acute Hospital course: Ms. Livingston is a 79 year old female who was discharged from acute care to hospice the morning of April 22 following admission April 18 with altered mental status. She was found to have bilateral pneumonia with sepsis and acute renal failure. She was treated with IV antibiotics and IV fluids. Renal function improved with IV fluid administration. Leukocytosis transiently decreased but worsened again on April 21. After contemplation following discussion with Dr. Chiang and the professor of social work, family wished her to be placed in hospice. She was seen by hospice personnel April 22. Comfort measures were initiated. She continued to decline and was found to be without pulse or respirations at 2325 on 04/22/2019 and was pronounced . No resuscitative efforts were done as per advanced directives. - Time Spent with Patient Total time spent providing and/or coordinating discharge services: - Discharge Medications Prescriptions: No Action LORazepam Oral Conc [Ativan Oral Conc] 2 mg PO Q2H PRN 7 Days #120 mls PRN Reason: Agitation Morphine Oral CONC [Roxanol] 0.5 ml PO Q1H PRN 7 Days #120 ml PRN Reason: Pain Home Medications: LORazepam Oral Conc [Ativan Oral Conc] 2 mg PO Q2H PRN 7 Days #120 mls 04/22/19 [Rx] Morphine Oral CONC [Roxanol] 0.5 ml PO Q1H PRN 7 Days #120 ml 04/22/19 [Rx] Allergies/Adverse Reactions: Allergy/AdvReac Type Severity Reaction Status Date / Time adhesive tape AdvReac See Verified 11/26/15 03:05 Comments codeine AdvReac See Verified 11/26/15 03:05 Comments iodine AdvReac See Verified 11/26/15 03:05 Comments shellfish derived AdvReac See Verified 11/26/15 03:05 Comments Sulfa (Sulfonamide AdvReac See Verified 11/26/15 03:05 Antibiotics) Comments Date of admission: 04/22/19 18:13 Primary care physician: Pablo Chiang MD - Constitutional Vitals: Temp Pulse Resp BP Pulse Ox 101.9 F H 107 6 54/40 87 04/22/19 19:16 04/22/19 19:16 04/22/19 19:16 04/22/19 19:16 04/22/19 19:16 - Patient Status Disposition: - Discharge Instructions
== END 2019-04-23 02:15 | disposition expired | DRG 871 ==
LOC: INPPIK 18:13
PROVIDERS: ADMIT Internal Medicine; ATTEND Internal Medicine